=== PATIENT | female | born 1990 | race Caucasian/White ===

== ENCOUNTER 2016-11-12 17:25 | Emergency (ER) | payer MEDICAID ==
[2016-11-12 17:48] VITALS: TEMP 98.8; BMI 22.1
[2016-11-12 18:27] LABS: WBC/URINE 0-2 (0-5)
[2016-11-12 18:28] LABS: LEUKOCYTES/URINE NEG (NEGATIVE); NITRITE/URINE NEG (NEGATIVE); URINE OCCULT BLOOD NEG (NEG/TRACE)
[2016-11-12] MEDS ORDERED: ONDANSETRON HCL 4 MG/2 ML VIAL IV ONE (18:48)
[2016-11-12] MEDS ORDERED: NS 1,000 ML IV ONE (18:48)
[2016-11-12] MEDS ORDERED: MORPHINE 4 MG/ML INJECTION IV ONE (18:48)
[2016-11-12 19:37] LABS: AUTOMATED BASOPHIL 0.9 % (0-2); AUTOMATED EOSINOPHIL 0.1 % (0-5); AUTOMATED LYMPH 3.3 % (17-44); AUTOMATED MONOCYTE 4.2 % (3-10); AUTOMATED NEUTROPHIL 91.5 % (45-76); MPV 8.9 fL (7.4-10.4)
--- NOTE | 2016-11-12 19:41 | EDPRACDOC ---
- General Information Chief Complaint: Abdominal Pain Stated Complaint: VOMITING DIARRHEA KIDNEY PAIN DIZZINESS Time Seen by Provider: 11/12/16 18:37 Information Source: Patient Mode Of Arrival: Car Home Medications: Home Medications Ciprofloxacin HCl [Cipro] 500 mg PO BID #20 tab 11/12/16 Ondansetron [Zofran Odt] 4 mg PO Q6H PRN #20 tab.rapdis 11/12/16 Oxycodone Immediate Release [Oxycodone Immediate Release (OxyIR)] 5 mg PO Q6H PRN #20 tab 11/12/16 Allergies/Adverse Reactions: Allergies Allergy/AdvReac Type Severity Reaction Status Date / Time amoxicillin Allergy Rash-Genera Verified 11/12/16 17:58 lized - History of Present Illness Onset: 2 days HPI: PT PRESENTS WITH A ONE DAY HISTORY OF FEVER, CHILLS, NAUSEA, VOMITING, DIARRHEA AND ABDOMINAL PAIN. PT STATES THE PAIN IS DIFFUSE. STATES BOTH OF HER CHILDREN HAVE ALSO BEEN SICK. STATES SHE IS HAVING LOWER BACK PAIN ALSO. Pain Location: Reports: Diffuse Pain Context: Reports: Spontaneous Pain Severity: Moderate Pain Quality: Reports: Sharp, Stabbing Pain Radiation: Reports: No Radiation : No Adult Abdominal History: Denies: Abdominal Surgery, Urolithiasis, Bowel Obstruction, Similar Pain (dx) Female Abdominal History: Denies: Abdominal Surgery, UTI, Ectopic, PID, Urolithiasis, Similar Pain (dx) Modifying Factors: improves with: Nothing Female Associated Signs & Symptoms: Reports: Nausea, Vomiting, Diarrhea Oral Intake: Decreased Urinary Output: Normal ED Past Medical History - History Reviewed Yes Nurses notes reviewed and agree except as marked - Patient Medical History Psychological History: Denies: Depression Systemic History: Denies: Cancer Surgical History: Reports: Tonsillectomy/Adnoidectomy. Denies: Hysterectomy - Social Medical History Smoking Status: Never smoker EDM Review of Systems - Review of Systems ROS Negative Except as Marked: Yes All systems reviewed and were negative except as marked - Physical Exam Constitutional: Alert Oriented to: Time, Person, Place Last recorded Vital Signs: Last Vital Signs Temp 98.8 F 11/12/16 17:45 Pulse 132 H 11/12/16 18:42 Resp 18 11/12/16 18:42 BP 114/74 11/12/16 18:42 Pulse Ox 100 11/12/16 18:42 Oxygen Pulse Oxygen Saturation 100 O2 Device Room Air Oxygen Flow Rate Fraction of Inspired Oxygen ( FIO2) - HEENT Head: Normal ( normocephalic) Eye Exam: Normal (PERRL, EOMI, Sclera white) Oropharynx: Membranes Dry Tympanic Membrane: Normal Nose: No Symptoms Reported (septum midline) Neck: Normal (FROM, trachea at midline) - Respiratory/Cardiovascular Respiratory: Normal - CTA (BBS clear to auscultation without adventitious sounds ) Cardiovascular: Tachycardia - GI Auscultation: Normal (NABS) Palpation: Normal (Soft,No rebound or guarding, non distended) Tenderness: Diffuse, Moderate Vaca's Sign: Negative Rectal Exam: Deferred - Musculoskeletal Back: Normal (Non-Tender) Extremities: Normal (Normal tone, Pulses 2+ No cyanosis or edema, FROM) - Integumentary Skin: Normal, Warm, Dry Lymphatics: Normal (no adenopathy) - Neurologic Memory Impaired: Normal Motor Function: Normal (Normal tone, Pulses 2+ No cyanosis or edema, FROM) Cranial Nerve: Normal (CN II-X11 intact sensation, strength 5/5) Cerebellar: Normal Mood Description: Normal Perception: Normal - Differential Diagnosis Urolithiasis, UTI - Results All Results Reviewed and Normal except as Highlighted below: Yes 11/12/16 19:31 11/12/16 19:31 WBC 14.6 xk/uL (3.8-10.8) H 11/12/16 19:31 RBC 5.15 xM/uL (4.20-5.40) 11/12/16 19:31 Hgb 14.5 g/dL (12.0-16.0) 11/12/16 19:31 Hct 43.2 % (36-47) 11/12/16 19:31 MCV 84 fL (81-99) 11/12/16 19:31 MCH 28.2 pg (27-32) 11/12/16 19:31 MCHC 33.7 g/dl (33-36) 11/12/16 19:31 RDW 14.0 % (11.5-14.5) 11/12/16 19:31 Plt Count 267 xk/uL (130-400) 11/12/16 19:31 MPV 8.9 fL (7.4-10.4) 11/12/16 19:31 Neut % (Auto) 91.5 % (45-76) H 11/12/16 19:31 Lymph % (Auto) 3.3 % (17-44) L 11/12/16 19:31 [place] % (Auto) 4.2 % (3-10) 11/12/16 19:31 Eos % (Auto) 0.1 % (0-5) 11/12/16 19:31 Baso % (Auto) 0.9 % (0-2) 11/12/16 19:31 Absolute Neuts (auto) 13.29 xk/uL (1.7-8.2) H 11/12/16 19:31 Absolute Lymphs (auto) 0.44 xk/uL (0.65-4.75) L 11/12/16 19:31 Sodium 142 mEq/L (137-146) 11/12/16 19:31 Potassium 3.9 mEq/L (3.5-5.1) 11/12/16 19:31 Chloride 105 mEq/L (98-107) 11/12/16 19:31 Carbon Dioxide 23 mMOL/L (22-33) 11/12/16 19:31 Anion Gap 18 mEq/L (8-16) H 11/12/16 19:31 BUN 12 MG/DL (7-17) 11/12/16 19:31 Creatinine 0.70 MG/DL (0.52-1.04) 11/12/16 19:31 Estimated GFR (MDRD) > 60 mL/min (>=60) 11/12/16 19:31 Glucose 99 MG/DL (70-99) 11/12/16 19:31 Calculated Osmolality 273 MOs/Kg (270-290) 11/12/16 19:31 Calcium 9.1 MG/DL (8.4-10.2) 11/12/16 19:31 Total Bilirubin 0.7 MG/DL (0.2-1.3) 11/12/16 19:31 AST 30 IU/L (14-36) 11/12/16 19:31 ALT 30 IU/L (9-52) 11/12/16 19:31 Alkaline Phosphatase 82 IU/L (38-126) 11/12/16 19:31 Total Protein 8.0 G/DL (6.3-8.2) 11/12/16 19:31 Albumin 4.5 G/DL (3.5-5.0) 11/12/16 19:31 Lipase 59 U/L (23-300) 11/12/16 19:31 Urine Color Yellow 11/12/16 17:55 Urine Clarity Sl hzy 11/12/16 17:55 Urine pH 5.0 (5.0-8.0) 11/12/16 17:55 Ur Specific [place] 1.035 (1.003-1.035) 11/12/16 17:55 Urine Protein Neg (NEG/TRACE) 11/12/16 17:55 Urine Glucose (UA) Neg (NEGATIVE) 11/12/16 17:55 Urine Ketones 1+ (NEGATIVE) H 11/12/16 17:55 Urine Occult Blood Neg (NEG/TRACE) 11/12/16 17:55 Urine Nitrite Neg (NEGATIVE) 11/12/16 17:55 Urine Bilirubin Neg (NEGATIVE) 11/12/16 17:55 Urine Urobilinogen 0.2 MG/DL (0-1) 11/12/16 17:55 Ur Leukocyte Esterase Neg (NEGATIVE) 11/12/16 17:55 Urine RBC 2-5 (0-5) 11/12/16 17:55 Urine WBC 0-2 (0-5) 11/12/16 17:55 Ur Epithelial Cells 2+ 11/12/16 17:55 Urine Bacteria Few (NEG/FEW) 11/12/16 17:55 Urine Mucus Large (NEG/OCC) 11/12/16 17:55 Urine Test Neg (NEGATIVE) 11/12/16 17:55 Lab Results 11/12/16 11/12/16 11/12/16 19:31 19:31 17:55 WBC 14.6 H RBC 5.15 Hgb 14.5 Hct 43.2 MCV 84 MCH 28.2 MCHC 33.7 RDW 14.0 Plt Count 267 MPV 8.9 Neut % (Auto) 91.5 H Lymph % (Auto) 3.3 L [place] % (Auto) 4.2 Eos % (Auto) 0.1 Baso % (Auto) 0.9 Absolute Neuts (auto) 13.29 H Absolute Lymphs (auto) 0.44 L Sodium 142 Potassium 3.9 Chloride 105 Carbon Dioxide 23 Anion Gap 18 H BUN 12 Creatinine 0.70 Estimated GFR (MDRD) > 60 Glucose 99 Calculated Osmolality 273 Calcium 9.1 Total Bilirubin 0.7 AST 30 ALT 30 Alkaline Phosphatase 82 Total Protein 8.0 Albumin 4.5 Lipase 59 Urine Color Urine Clarity Urine pH Ur Specific [place] Urine Protein Urine Glucose (UA) Urine Ketones Urine Occult Blood Urine Nitrite Urine Bilirubin Urine Urobilinogen Ur Leukocyte Esterase Urine RBC Urine WBC Ur Epithelial Cells Urine Bacteria Urine Mucus Urine Test Neg 11/12/16 17:55 WBC RBC Hgb Hct MCV MCH MCHC RDW Plt Count MPV Neut % (Auto) Lymph % (Auto) [place] % (Auto) Eos % (Auto) Baso % (Auto) Absolute Neuts (auto) Absolute Lymphs (auto) Sodium Potassium Chloride Carbon Dioxide Anion Gap BUN Creatinine Estimated GFR (MDRD) Glucose Calculated Osmolality Calcium Total Bilirubin AST ALT Alkaline Phosphatase Total Protein Albumin Lipase Urine Color Yellow Urine Clarity Sl hzy Urine pH 5.0 Ur Specific [place] 1.035 Urine Protein Neg Urine Glucose (UA) Neg Urine Ketones 1+ H Urine Occult Blood Neg Urine Nitrite Neg Urine Bilirubin Neg Urine Urobilinogen 0.2 Ur Leukocyte Esterase Neg Urine RBC 2-5 Urine WBC 0-2 Ur Epithelial Cells 2+ Urine Bacteria Few Urine Mucus Large Urine Test Decision Time to Discharge: 20:43 - Departure Disposition: Home Condition: Stable Final Diagnosis: Gastroenteritis, Abdominal pain Instructions: Acute Abdominal Pain (ED), Gastroenteritis (ED) Education/Counseling Given To: Patient Education/Counseling Given Regarding: Diagnosis, Treatment, Prognosis, Follow Up Referrals: [place] Taveras NP [Primary Care Provider] - One Week Prescriptions: Ciprofloxacin HCl [Cipro] 500 mg PO BID #20 tab Ondansetron [Zofran Odt] 4 mg PO Q6H PRN #20 tab.rapdis PRN Reason: Nausea/Vomiting Oxycodone Immediate Release [Oxycodone Immediate Release (OxyIR)] 5 mg PO Q6H PRN #20 tab PRN Reason: Pain Additional Instructions: INCREASE FLUID INTAKE. FOLLOW UP WITH PRIMARY CARE PROVIDER NEXT WEEK. TAKE ALL ANTIBIOTICS PRESCRIBED. RETURN TO THE ED FOR WORSENING SYMPTOMS OR CONCERNS.
[2016-11-12 19:46] LABS: BLOOD UREA NITROGEN 12 MG/DL (7-17); CALCIUM 9.1 MG/DL (8.4-10.2); CALCULATED OSMOLALITY 273 MOs/Kg (270-290); CHLORIDE 105 mEq/L (98-107); GLUCOSE 99 MG/DL (70-99); SODIUM LEVEL 142 mEq/L (137-146)
--- NOTE | 2016-11-12 20:28 | DIRPT ---
CLINICAL DATA: Back pain for 2 days, nausea, vomiting, diarrhea EXAM: CT ABDOMEN AND PELVIS WITHOUT CONTRAST TECHNIQUE: Multidetector CT imaging of the abdomen and pelvis was performed following the standard protocol without IV contrast. COMPARISON: 02/05/2007 FINDINGS: The lung bases are unremarkable. Sagittal images of the spine are unremarkable. Unenhanced liver shows no biliary ductal dilatation. Mild distended gallbladder without evidence of calcified gallstones. No pericholecystic fluid. Unenhanced pancreas, spleen and adrenal glands are unremarkable. Abdominal aorta is unremarkable. Unenhanced kidneys are symmetrical in size. No hydronephrosis or hydroureter. No small bowel obstruction. No ascites or free air. No adenopathy. No nephrolithiasis. No calcified ureteral calculi are noted. Unenhanced uterus and ovaries are unremarkable. Small pelvic free fluid noted within posterior cul-de-sac. There is a low lying cecum. The tip of the cecum is in right posterior pelvis. Normal appendix is noted in axial image 64 in right presacral region. There is no pericecal inflammation. The urinary bladder is under distended. No calcified calculi are noted within urinary bladder. There is some liquid stool noted within cecum and right colon. Diarrhea cannot be excluded. Clinical correlation is necessary. IMPRESSION: 1. There is no evidence of nephrolithiasis. No calcified ureteral calculi. No hydronephrosis or hydroureter. 2. No small bowel obstruction. 3. Mild distended gallbladder without evidence of calcified gallstones. No pericholecystic fluid. 4. There is a low lying cecum. No pericecal inflammation. Normal appendix partially visualized in axial image 64. Some liquid stool noted within cecum and right colon. Diarrhea cannot be excluded. 5. Small amount of pelvic free fluid is noted within posterior cul-de-sac. Unremarkable uterus and ovaries. Electronically Signed By: Dylan Artis M.D. On: 11/12/2016 20:25
[2016-11-12] MEDS ORDERED: OXYCODONE HCL 5 MG TABLET PO ONE (20:46)
[2016-11-12 21:36] VITALS: BP 114/66; PULSE 83
== END 2016-11-12 21:21 | disposition home or self-care (01) ==
LOC: ED 17:25
DX: K52.9 Noninfective gastroenteritis and colitis, unspecified (principal); R10.9 Unspecified abdominal pain
CPT/HCPCS: 36415; 74176; 80053; 81001; 81025; 83690; 85025; 96374; 96375; 99283; J2270; J2405; J3490